=== PATIENT | female | born 1955 | race American Indian/Alaskan Native ===

== ENCOUNTER 2017-10-30 06:54 | Emergency (ER) | payer MEDICARE ==
--- NOTE | 2017-10-30 07:11 | Emergency Department Report ---
HPI - General Time Seen by Provider: 10/30/17 07:03 - HPI HPI: 62-year-old Anette female presents to the emergency department via EMS from home with a complaint of some confusion this morning that they attributed to hypoglycemia. The patient has a history of insulin-dependent diabetes and despite eating dinner last night she was noticed by her to appear altered and/or confused. He was able to get her some Coca-Cola and shortly after that she started becoming more awake and alert. EMS found her to have a blood sugar of 100 at that time and they placed her on a D10 drip. Currently the patient is awake and alert and has no complaints. She also has a past medical history of hypertension, CHF, and a pacemaker secondary to bradycardia. Her primary care physician is through [facility]. ED Past Medical Hx - Past Medical History Hx Hypertension: Yes Hx Diabetes: Yes - Surgical History Additional Surgical History: Eyes susrgery, gallstone removed - Social History Smoking Status: Never Smoker Substance Use Type: None - Medications Home Medications: Home Medications Medication Instructions Recorded Confirmed Last Taken Type Azithromycin [Zithromax Z-GINA] 250 mg PO DAILY #6 tab 06/03/15 Unknown Rx Hydrochlorothiazide [HCTZ] 25 mg PO QDAY 06/03/15 06/03/15 Unknown History Insulin Regular,Human U-500(Nf 18 unit SQ QPM 06/03/15 06/03/15 Unknown History [HumuLIN R] Insulin Regular,Human U-500(Nf 25 unit SQ QAM 06/03/15 06/03/15 Unknown History [HumuLIN R] Lisinopril [Zestril] 20 mg PO QDAY 06/03/15 06/03/15 Unknown History ED Review of Systems ROS: Stated complaint: LOW BLOOD GLUCOSE Other details as noted in HPI Comment: All other systems reviewed and negative Constitutional: denies: chills, fever Eyes: denies: eye pain, eye discharge, vision change ENT: denies: ear pain, throat pain Respiratory: denies: cough, shortness of breath, wheezing Cardiovascular: denies: chest pain, palpitations Gastrointestinal: denies: abdominal pain, nausea, diarrhea Genitourinary: denies: urgency, dysuria, discharge Musculoskeletal: denies: back pain, joint swelling, arthralgia Skin: denies: rash, lesions Neurological: confusion. denies: weakness Physical Exam - Physical Exam Physical Exam: GENERAL: The patient is well-developed well-nourished. HENT: Normocephalic. Atraumatic. Patient has moist mucous membranes. EYES: Extraocular motions are intact. NECK: Supple. No meningitic signs are noted. There is no adenopathy noted. CHEST/LUNGS: Clear to auscultation. There is no respiratory distress noted. HEART/CARDIOVASCULAR: Regular. There is no tachycardia. There is no murmur. ABDOMEN: Abdomen is soft, nontender. Patient has normal bowel sounds. There is no abdominal distention. SKIN: Skin is warm and dry. NEURO: The patient is awake, alert, and oriented. The patient is cooperative. The patient has no focal neurologic deficits. The patient has normal speech. MUSCULOSKELETAL: There is no tenderness or deformity. There is no evidence of acute injury. ED Medical Decision Making - Lab Data Result diagrams: 10/30/17 07:16 10/30/17 07:16 - EKG Data -: EKG Interpreted by Nh EKG shows normal: sinus rhythm (atrial paced with PVCs), axis, intervals, QRS complexes, ST-T waves Rate: normal - EKG Data When compared to previous EKG there are: previous EKG unavailable Interpretation: other (atrial paced with PVCs. Normal axis, normal intervals) - Medical Decision Making Patient originally came in after she had some type of unresponsive episode or some confusion this morning but appeared to be secondary to hypoglycemia. The patient came in with a blood sugar of about 112 after she had received some soda and D10. Since being in the emergency department she has been awake and alert and does not appear in any acute distress. The second Accu-Chek was about 78 and therefore the patient was given an amp of D50 and given something to eat. The next 2 blood sugar checks showed that the blood sugar was trending up. Patient also has a creatinine of 2 which is elevated from her one previous visit. 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 She was reevaluated multiple times over multiple hours and the patient has no complaints and is asking for discharge home. She has been encouraged to follow up with both her primary care physician and her factory superintendent and to return to the emergency Department with any worsening of her symptoms or any acute distress. Critical Care Time: No Critical care attestation.: If time is entered above; I have spent that time in minutes in the direct care of this critically ill patient, excluding procedure time. ED Disposition Clinical Impression: Hypoglycemia, Renal insufficiency, Unresponsive episode Hypertension Qualifiers: Hypertension type: essential hypertension Qualified Code(s): I10 - Essential ( primary) hypertension Disposition: TO HOME OR SELFCARE Is pt being admited?: No Condition: Stable Instructions: Diabetic Hypoglycemia (ED), Hypertension (ED), Impaired Kidney Function (ED) Additional Instructions: Please follow-up with your primary care physician and your factory superintendent in the next few days. Return to the emergency Department with any worsening of your symptoms or any acute distress. Please try and stay away from foods that are high in salt and caffeinated products to help with your elevated blood pressure. Keep a blood pressure log. Referrals: PRIMARY CARE, [Primary Care Provider] - 3-5 Days Pain Management Nurse Practitioner, Your [Other] - 3-5 Days Time of Disposition: 12:17
[2017-10-30] MEDS ORDERED: COREG PO ONE (07:15)
[2017-10-30] MEDS ORDERED: ZESTRIL PO ONE (07:15)
[2017-10-30 07:38] LABS: Basophils # (Auto) 0.1 K/mm3 (0.0-0.1); Basophils % (Auto) 0.7 % (0.0-1.8); Eosinophils # (Auto) 0.1 K/mm3 (0.0-0.4); Eosinophils % (Auto) 0.8 % (0.0-4.3); Hematocrit 34.3 % (30.3-42.9); Hemoglobin 11.5 gm/dl (10.1-14.3); Lymphocytes # (Auto) 3.3 K/mm3 (1.2-5.4); Lymphocytes % (Auto) 23.3 % (13.4-35.0); Mean Corpuscular HGB Conc 34 % (30-34); Mean Corpuscular Volume 74 fl (79-97); Monocytes # (Auto) 1.4 K/mm3 (0.0-0.8); Monocytes % (Auto) 9.9 % (0.0-7.3); Platelet Count 269 K/mm3 (140-440); Red Blood Count 4.64 M/mm3 (3.65-5.03); Red Cell Distribution Width 15.5 % (13.2-15.2)
[2017-10-30 07:39] LABS: Mean Corpuscular Hemoglobin 25 pg (28-32)
[2017-10-30 07:49] LABS: Calcium 9.8 mg/dL (8.4-10.2)
[2017-10-30] MEDS ORDERED: D50W (25GM) Syringe IV ONE (09:07)
[2017-10-30 12:35] VITALS: BP 155/75
== END 2017-10-30 12:34 | disposition home or self-care (01) ==
LOC: ED 06:54
DX: E11.649 Type 2 diabetes mellitus with hypoglycemia without coma (principal); I10 Essential (primary) hypertension; N28.9 Disorder of kidney and ureter, unspecified; Z79.4 Long term (current) use of insulin
CPT/HCPCS: 36415; 80048; 82962; 85025; 93005; 93010; 96374

== ENCOUNTER 2018-10-29 13:32 | Emergency (ER) | payer OTHER, MEDICARE ==
[2018-10-29] MEDS ORDERED: D50W (25GM) Syringe IV ONE (14:10)
--- NOTE | 2018-10-29 14:25 | Emergency Department Report ---
ED General Adult HPI - General Chief complaint: Hypoglycemia Stated complaint: HYPOGLYCEMIA Time Seen by Provider: 10/29/18 14:01 Source: patient, EMS Mode of arrival: Stretcher Limitations: No Limitations - History of Present Illness Initial comments: E give the patient presents to the emergency department with a chief complaint of hypoglycemia. Upon EMSs arrival the patient's glucose level was 34. The patient received a half amp of D50 in route. Upon arrival to the ED the patient was given D50 and food tray. Patient is completely at her baseline per family. Patient endorses not eating a large enough breakfast this morning but still together insulin - Related Data Home Medications Medication Instructions Recorded Confirmed Last Taken Ergocalciferol [Vitamin D2] 1 cap PO Q14D 04/17/18 04/21/18 04/14/18 09:00 Previous Rx's Medication Instructions Recorded Last Taken Type ALBUTEROL NEB's [Proventil 0.083% 2.5 mg IH Q4HRT PRN nebu 05/04/18 Unknown Rx NEBS] Acetaminophen [Acetaminophen TAB] 650 mg PO Q4H PRN tablet 05/04/18 Unknown Rx Antacid [Alum-Mag Hydrox-Simeth 15 ml PO Q4H PRN oral.liqd 05/04/18 Unknown Rx [id number]] Aspirin EC 81 mg PO QDAY tablet 05/04/18 Unknown Rx AtorvaSTATin [Lipitor] 80 mg PO QHS tablet 05/04/18 Unknown Rx Clopidogrel [Plavix] 75 mg PO QDAY tablet 05/04/18 Unknown Rx Dextrose 50% in Water [D50W (25GM) 50 ml IV PRN PRN syringe 05/04/18 Unknown Rx Syringe] Ergocalciferol [Vitamin D2] 50,000 unit PO Q14D capsule 05/04/18 Unknown Rx Famotidine [Pepcid] 20 mg PO DAILY tablet 05/04/18 Unknown Rx Insulin Glargine [Lantus VIAL] 36 units SUB-Q QHS units 05/04/18 Unknown Rx Lispro Insulin [HumaLOG] 0 unit SUB-Q ACHS units 05/04/18 Unknown Rx Lispro Insulin [HumaLOG] 10 unit SUB-Q AC units 05/04/18 Unknown Rx Metoprolol [Lopressor TAB] 25 mg PO Q6H tablet 05/04/18 Unknown Rx Nitroglycerin [Nitrostat] 0.4 mg SL Q5M PRN tablet 05/04/18 Unknown Rx Ondansetron [Zofran INJ] 4 mg IV Q8H PRN vial 05/04/18 Unknown Rx Sodium Bicarbonate 650 mg PO BID tablet 05/04/18 Unknown Rx guaiFENesin ER [Mucinex ER] 600 mg PO BID tablet 05/04/18 Unknown Rx hydrALAZINE [Apresoline TAB] 50 mg PO Q8HR tablet 05/04/18 Unknown Rx Allergies Allergy/AdvReac Type Severity Reaction Status Date / Time adhesive tape Allergy Rash Verified 06/03/15 14:37 ED Review of Systems ROS: Stated complaint: HYPOGLYCEMIA Other details as noted in HPI Comment: All other systems reviewed and negative Constitutional: denies: chills, fever Eyes: denies: eye pain, eye discharge, vision change ENT: denies: ear pain, throat pain Respiratory: denies: cough, shortness of breath, wheezing Cardiovascular: denies: chest pain, palpitations Endocrine: no symptoms reported Gastrointestinal: denies: abdominal pain, nausea, diarrhea Genitourinary: denies: urgency, dysuria, discharge Musculoskeletal: denies: back pain, joint swelling, arthralgia Skin: denies: rash, lesions Neurological: denies: headache, weakness, paresthesias Psychiatric: denies: anxiety, depression Hematological/Lymphatic: denies: easy bleeding, easy bruising ED Past Medical Hx - Past Medical History Hx Hypertension: Yes Hx Diabetes: Yes Additional medical history: hyperlipidemia, blind, pacemaker - Surgical History Additional Surgical History: Eyes susrgery, gallstone removed - Social History Smoking Status: Never Smoker Substance Use Type: None - Medications Home Medications: Home Medications Medication Instructions Recorded Confirmed Last Taken Type Ergocalciferol [Vitamin D2] 1 cap PO Q14D 04/17/18 04/21/18 04/14/18 09:00 History ALBUTEROL NEB's [Proventil 0.083% 2.5 mg IH Q4HRT PRN nebu 05/04/18 Unknown Rx NEBS] Acetaminophen [Acetaminophen TAB] 650 mg PO Q4H PRN tablet 05/04/18 Unknown Rx Antacid [Alum-Mag Hydrox-Simeth 15 ml PO Q4H PRN oral.liqd 05/04/18 Unknown Rx [id number]] Aspirin EC 81 mg PO QDAY tablet 05/04/18 Unknown Rx AtorvaSTATin [Lipitor] 80 mg PO QHS tablet 05/04/18 Unknown Rx Clopidogrel [Plavix] 75 mg PO QDAY tablet 05/04/18 Unknown Rx Dextrose 50% in Water [D50W (25GM) 50 ml IV PRN PRN syringe 05/04/18 Unknown Rx Syringe] Ergocalciferol [Vitamin D2] 50,000 unit PO Q14D capsule 05/04/18 Unknown Rx Famotidine [Pepcid] 20 mg PO DAILY tablet 05/04/18 Unknown Rx Insulin Glargine [Lantus VIAL] 36 units SUB-Q QHS units 05/04/18 Unknown Rx Lispro Insulin [HumaLOG] 0 unit SUB-Q ACHS units 05/04/18 Unknown Rx Lispro Insulin [HumaLOG] 10 unit SUB-Q AC units 05/04/18 Unknown Rx Metoprolol [Lopressor TAB] 25 mg PO Q6H tablet 05/04/18 Unknown Rx Nitroglycerin [Nitrostat] 0.4 mg SL Q5M PRN tablet 05/04/18 Unknown Rx Ondansetron [Zofran INJ] 4 mg IV Q8H PRN vial 05/04/18 Unknown Rx Sodium Bicarbonate 650 mg PO BID tablet 05/04/18 Unknown Rx guaiFENesin ER [Mucinex ER] 600 mg PO BID tablet 05/04/18 Unknown Rx hydrALAZINE [Apresoline TAB] 50 mg PO Q8HR tablet 05/04/18 Unknown Rx ED Physical Exam - General Limitations: No Limitations General appearance: alert, in no apparent distress - Head Head exam: Present: atraumatic, normocephalic - Eye Eye exam: Present: normal appearance - ENT ENT exam: Present: mucous membranes moist - Neck Neck exam: Present: normal inspection - Respiratory Respiratory exam: Present: normal lung sounds bilaterally. Absent: respiratory distress - Cardiovascular Cardiovascular Exam: Present: regular rate, normal rhythm. Absent: systolic murmur, diastolic murmur, rubs, gallop - GI/Abdominal GI/Abdominal exam: Present: soft, normal bowel sounds - Extremities Exam Extremities exam: Present: normal inspection - Back Exam Back exam: Present: normal inspection - Neurological Exam Neurological exam: Present: alert, oriented X3, CN II-XII intact. Absent: motor sensory deficit - Psychiatric Psychiatric exam: Present: normal affect, normal mood - Skin Skin exam: Present: warm, dry, intact, normal color. Absent: rash ED Medical Decision Making - Lab Data Lab Results 10/29/18 Range/Units 13:49 POC Glucose 84 (70-105) - Medical Decision Making Patient back to her baseline Given amp of D50 and food tray Critical care attestation.: If time is entered above; I have spent that time in minutes in the direct care of this critically ill patient, excluding procedure time. ED Disposition Clinical Impression: Hypoglycemia Disposition: DC- TO HOME OR SELFCARE Is pt being admited?: No Does the pt Need Aspirin: No Condition: Stable Instructions: Diabetic Hypoglycemia (ED) Additional Instructions: return if worse Referrals: PRIMARY CARE,MD [Primary Care Provider] - 3-5 Days [facility] [Provider Group] - 3-5 Days [facility] [Provider Group] - 3-5 Days Time of Disposition: 14:54
[2018-10-29 15:24] VITALS: BP 126/73
== END 2018-10-29 15:24 | disposition home or self-care (01) ==
LOC: ED 13:32
DX: E11.649 Type 2 diabetes mellitus with hypoglycemia without coma (principal); I10 Essential (primary) hypertension; E78.5 Hyperlipidemia, unspecified; Z90.49 Acquired absence of other specified parts of digestive tract; Z79.4 Long term (current) use of insulin; Z98.890 Other specified postprocedural states; Z95.0 Presence of cardiac pacemaker; Z91.048 Other nonmedicinal substance allergy status
CPT/HCPCS: 82962; 96374